=== PATIENT | female | born 1960 | race Caucasian/White ===

== ENCOUNTER → 2017-01-29 | Outpatient (CLI) | payer OTHER ==
[2017-01-29 19:35] LABS: Basophils % (A) 1 %; CH 30.9; CHCM 33.8; Eosinophils # (A) 0.2 k/uL (0-0.7); Eosinophils % (A) 3 %; HCT 39.9 % (34.0-46.0); HDW 2.81; HGB 13.1 gm/dL (11.4-16.0); Luc # (Auto) 0.12; Luc % (Auto) 2; Lymphocytes # (A) 1.5 k/uL (1.0-4.8); Lymphocytes % (A) 26 %; MCH 30.1 pg (25.0-35.0); MCHC 32.8 g/dL (31.0-37.0); MCV 91.8 fL (80.0-100.0); Monocytes # (A) 0.3 k/uL (0-1.0); Monocytes % (A) 5 %; Neutrophils # (A) 3.7 k/uL (1.3-7.7); Neutrophils % (A) 63 %; RBC 4.34 m/uL (3.80-5.40); RDW 12.6 % (11.5-15.5); WBC 5.8 k/uL (3.8-10.6); WBC (Perox) 5.86
[2017-01-29 19:58] LABS: ALT 29 U/L (9-52); AST 19 U/L (14-36); Alkaline Phosphatase 108 U/L (38-126); Anion Gap 12 mmol/L; Bilirubin, Delta 0.3 mg/dL (0.0-0.2); Blood Urea Nitrogen 23 mg/dL (7-17); Calcium 10.1 mg/dL (8.4-10.2); Carbon Dioxide 23 mmol/L (22-30); Chloride 106 mmol/L (98-107); Glucose 184 mg/dL (74-99); Magnesium 1.8 mg/dL (1.6-2.3); Non-African American GFR(MDRD) >60 (>60 ml/min/1.73 sqM); Potassium 4.9 mmol/L (3.5-5.1); Sodium 141 mmol/L (137-145); Total Bilirubin 0.6 mg/dL (0.2-1.3); Total Protein 7.7 g/dL (6.3-8.2)
[2017-01-30 14:52] LABS: Cholesterol 211 mg/dL (<200)
== END ==
LOC: MMGSC 10:47
PROVIDERS: ATTEND Internal Medicine Gastroenterology
DX: Z48.23 Encounter for aftercare following liver transplant (principal); Z94.4 Liver transplant status
CPT/HCPCS: 36415; 80048; 80061; 80076; 80197; 82465; 83036; 83735; 85025

== ENCOUNTER → 2017-01-29 | Outpatient (CLI) | payer OTHER ==
[2017-01-29 19:48] LABS: Cholesterol 215 mg/dL (<200); HDL Cholesterol 60 mg/dL (40-60); Triglycerides 115 mg/dL (<150)
[2017-01-29 21:26] LABS: Hemoglobin A1C 6.8 % (4.2-6.1)
== END ==
LOC: MMGSC 10:59
PROVIDERS: ATTEND Family Medicine
DX: E11.9 Type 2 diabetes mellitus without complications (principal)
CPT/HCPCS: 80061; 83036

== ENCOUNTER → 2017-07-30 | Outpatient (CLI) | payer OTHER ==
[2017-07-30 18:21] LABS: Cholesterol 214 mg/dL (<200); HDL Cholesterol 57 mg/dL (40-60)
[2017-07-31 03:36] LABS: Urine Creatinine 264.8 mg/dL
== END | disposition home or self-care (01) ==
LOC: MMGSC 10:10
PROVIDERS: ATTEND Family Medicine
DX: E11.9 Type 2 diabetes mellitus without complications (principal); I10 Essential (primary) hypertension
CPT/HCPCS: 36415; 80061; 82043; 82570; 83036

== ENCOUNTER → 2022-03-24 | Outpatient (CLI) | payer BC ==
--- NOTE | 2022-03-25 01:37 | MR ---
EXAMINATION TYPE: MR knee LT wo con DATE OF EXAM: 03/24/2022 COMPARISON: This could be due to persistent met hemoglobin content. HISTORY: Left knee pain Multiplanar multiecho imaging of the left knee with no contrast. There is subcutaneous edema anterior to the patella. Similar change seen anterior to the proximal tib ia. There is complete tear of the anterior cruciate ligament. Posterior cruciate ligament is intact. There is small knee joint effusion. The collateral ligaments are intact. There is small areas of increased signal in the anterior horn of the lateral meniscus consistent with a horizontal tear. The medial meniscus appears fairly normal. IMPRESSION: Knee joint effusion. Subcutaneous edema. Complete tear anterior cruciate ligament. Small horizontal tear of the anterior horn of the lateral meniscus.
== END | disposition home or self-care (01) ==
LOC: RADMRIMAIN 19:28
PROVIDERS: ATTEND Orthopaedic Surgery
DX: M25.462 Effusion, left knee (principal); S83.282A Other tear of lateral meniscus, current injury, left knee, initial encounter; S83.512A Sprain of anterior cruciate ligament of left knee, initial encounter; X58.XXXA Exposure to other specified factors, initial encounter

== ENCOUNTER 2022-06-07 09:33 | Day surgery (SDC) | payer BC ==
[2022-06-06 08:12] VITALS: BMI 42.5
--- NOTE | 2022-06-07 03:13 | HP ---
HISTORY AND PHYSICAL DATE OF SURGERY: 06/07/2022. HISTORY OF PRESENT ILLNESS: Georgina Riley is a 61-year-old patient seen with progressive left knee pain. We discussed options for treatment. She elected to proceed with left knee arthroscopy. Consent was obtained. PAST MEDICAL HISTORY: Hypertension, hyperlipidemia, rbi-vgonleh-vvjgilled diabetes. PAST SURGICAL HISTORY: section, liver transplant surgery. DAILY MEDICATIONS: 1. Amlodipine. 2. Atorvastatin. 3. Empagliflozin. 4. Ursodiol. 5. Tacrolimus. ALLERGIES: None. SOCIAL HISTORY: She denies tobacco use. PHYSICAL EVALUATION OF THE LEFT KNEE: Range of motion is +3 to 115. Mild effusion. Tenderness, lateral joint line. Positive lateral Elsy's. Ligaments stable. Hip rotation without pain. Distal neurovascular exam intact. RADIOGRAPHS: Radiographs of the left knee revealed a mild osteoarthritis. MRI of left knee revealed a lateral meniscal tear, ACL tear and effusion. IMPRESSION: 1. Internal derangement of left knee with lateral meniscal tear and anterior cruciate ligament tear. 2. Hypertension. PLAN: Left knee arthroscopy with partial lateral meniscectomy and debridement. MMODL / IJN: [id number] /
[~2022-06-07 09:33] MED LIST: DEXAMETHASONE SOD PHOSPHATE 4 MG/ML 1 ML VIAL IV ONE; HYDROmorphone 0.5 MG/0.5 ML SYRINGE IVP PRN; LACTATED RINGERS 1,000 ML IV SCH; LIDOCAINE 1% (10MG/ML) FOR IV START INTRADERMA PRN; ONDANSETRON 4 MG/2 ML VIAL IVP ONE
[2022-06-07 10:41] LABS: Glucose,Whole Blood 120 mg/dL (70-110)
[2022-06-07] MEDS ORDERED: SCOPOLAMINE 1 MG/72 HR PATCH TRANSDERM ONE (10:51)
[2022-06-07] MEDS ORDERED: SUCCINYLCHOLINE CHLORIDE 200 MG/10 ML VIAL IV ONE (11:37)
[2022-06-07] MEDS ORDERED: LIDOCAINE 2% INJ 20 MG/ML (2 ML VIAL) ONE (11:37)
[2022-06-07] MEDS ORDERED: BUPIVACAINE (PF) 0.25% 30 ML VIAL SQ ONE ×2 (11:37→12:09)
[2022-06-07] MEDS ORDERED: MIDAZOLAM 2 MG/2 ML VIAL ONE (11:37)
[2022-06-07] MEDS ORDERED: PROPOFOL 10 MG/ML 20 ML VIAL IV ONE (11:37)
[2022-06-07] MEDS ORDERED: fentaNYL (PF) 50 MCG/ML 2 ML AMP ONE (11:37)
--- NOTE | 2022-06-07 12:22 | P.OP ---
Date of Procedure: 06/07/22 Preoperative Diagnosis: Internal derangement left knee Postoperative Diagnosis: 1. Tear lateral meniscus left knee 2. Partial ACL tear left knee 3. Grade 4 chondromalacia femoral sulcus left knee 4. Reactive synovitis medial, lateral and suprapatellar compartments left knee Procedure(s) Performed: 1. Arthroscopic partial lateral meniscectomy left knee 2. Arthroscopic debridement partial ACL tear left knee 3. Arthroscopic partial synovectomy medial, lateral and suprapatellar compartments left knee Anesthesia: GETA, local Surgeon: Eulogio Fragoso Estimated Blood Loss (ml): 8 Pathology: none sent Condition: stable Disposition: PACU Indications for Procedure: 61-year-old patient seen with progressive left knee pain. After treatment options were discussed, she elected to proceed with arthroscopy. Operative Findings: See description of procedure Description of Procedure: Patient was taken to the operative suite. Patient underwent a general anesthetic by the department of anesthesia. Patient was given preoperative antibiotics. The left lower extremity was placed in a well-padded arthroscopic leg dupree. The left leg was prepped and draped in the normal sterile orthopedic fashion. A lateral parapatellar and suprapatellar incision was made. Trochars were inserted. Arthroscopy was initiated. Suprapatellar pouch revealed diffuse thick reactive synovitis. The patellofemoral joint appeared to articulate congruently. There was grade 4 chondromalacia of the femoral sulcus without evidence for significant osteochondral tears being present. The scope was guided into the medial gutter. No loose bodies or plica were identified The scope was then guided into the medial compartment. A medial parapatellar incision was made. Trocar inserted followed by probe. The medial meniscus was probed and was found to be stable. There was no stiffening chondromalacia involving the medial compartment. There was some thick reactive synovitis anteriorly. I performed a partial synovectomy. There appeared be good decompression of synovitis. Scope and probe were then guided into the intercondylar notch. Cruciates were identified, probed and I noted some partial tearing along the lateral fibers of the anterior cruciate ligament. I introduced a motorized shaver and debrided those out. The residual ACL was probed and was found to be stable.. The scope and probe were then guided into lateral compartment. There was a complex tear involving the posterior horn lateral meniscus. There were grade 1 chondromalacia changes lateral femoral condyle. There was thick reactive synovitis anteriorly. I performed a partial lateral meniscectomy getting down to stable meniscal tissue. I performed a partial synovectomy decompressing the reactive synovitis. The residual meniscus was probed and was found to be stable. There was good decompression of synovitis. The scope was in guided back into the suprapatellar compartment. I introduced a motorized shaver into the suprapatellar compartment. I debrided some piecemeal fragments of meniscus that I encountered. I performed a partial synovectomy. Shaver was removed. There was good decompression of the synovitis. I now took one more look around the entire knee, no residual debris. Instruments were now removed from the joint. The joint was infiltrated with .25% Marcaine. Steri-Strips were applied to the portal sites. Sterile dressings were applied. The patient was placed into a JENAE hose. No tourniquet was utilized. The patient was awakened, transferred to a bed and taken to recovery stable satisfactory condition.
[2022-06-07 12:29] VITALS: TEMP 97.4
[2022-06-07] MEDS ORDERED: LACTATED RINGERS 1,000 ML IV ONE (13:14)
[2022-06-07] MEDS ORDERED: ONDANSETRON 4 MG/2 ML VIAL ONE (13:21)
[2022-06-07] MEDS ORDERED: ONDANSETRON 4 MG/2 ML VIAL IVP ONE (13:30)
[2022-06-07 14:00] VITALS: RESP 20
[2022-06-07 14:20] VITALS: BP 118/75; PULSE 93
== END 2022-06-07 15:11 | disposition home or self-care (01) ==
LOC: OR 09:33
PROVIDERS: ATTEND Orthopaedic Surgery
DX: M23.301 Other meniscus derangements, unspecified lateral meniscus, left knee (principal); S83.512A Sprain of anterior cruciate ligament of left knee, initial encounter; M94.262 Chondromalacia, left knee; M65.862 Other synovitis and tenosynovitis, left lower leg; M25.562 Pain in left knee; M17.12 Unilateral primary osteoarthritis, left knee; I10 Essential (primary) hypertension; E78.5 Hyperlipidemia, unspecified; E11.9 Type 2 diabetes mellitus without complications; M25.462 Effusion, left knee; Z94.4 Liver transplant status; Z98.891 History of uterine scar from previous surgery; X58.XXXA Exposure to other specified factors, initial encounter
CPT/HCPCS: 29881; J2250; J0330; J1100; J0690; J2405; J3010; J2704; J1170; J2001

== ENCOUNTER → 2023-07-02 | Outpatient (CLI) | payer BC ==
--- NOTE | 2023-07-02 08:47 | US ---
EXAMINATION TYPE: US thyroid st tissue head/neck DATE OF EXAM: 07/02/2023 COMPARISON: NONE CLINICAL INDICATION: Female, 62 years old with history of R59.0 LOCALIZED ENLARGED LYMPH NODES; Lump left shoulder area. TECHNIQUE: Grayscale imaging of the area of concern in the left neck. FINDINGS: Scanned left shoulder area of concern. Hypoechoic area seen 1.8 x .5 x 1.6 m. IMPRESSION: Hypoechoic area in the area of concern on the patient's lump favored represent a lipid containing les ion such as a lipoma. This can be confirmed with MRI or CT if clinically warranted.
== END | disposition home or self-care (01) ==
LOC: RADUSWWP 08:14
PROVIDERS: ATTEND Student in an Organized Health Care Education/Training Program
DX: R59.0 Localized enlarged lymph nodes (principal)
CPT/HCPCS: 76536

== ENCOUNTER → 2024-08-26 | Outpatient (CLI) | payer MEDICARE ==
--- NOTE | 2024-08-26 08:39 | US ---
EXAMINATION TYPE: US pelvic complete DATE OF EXAM: 08/26/2024 COMPARISON: NONE CLINICAL INDICATION: Female, 63 years old with history of R89.1 Elevated HCG; TECHNIQUE: Transabdominal (TA). Transabdominal grayscale sonographic images of the pelvis were acquired. FINDINGS: Date of LMP: Patient unsure EXAM MEASUREMENTS: Uterus: 11.3 x 4.4 x 6.2 cm Endometrial Stripe: 0.5 cm Right Ovary: 2.4 x 1.9 x 1.8 cm Left Ovary: 2.5 x 1.2 x 2.4 cm 1. Uterus: anteverted, 0.7cm hyperechoic focus anterior myometrium 2. Endometrium: appears wnl 3. Right Ovary: wnl 4. Left Ovary: wnl 5. Bilateral Adnexa: wnl 6. Posterior cul-de-sac: wnl Anteverted uterus with a 0.7 cm shadowing calculus within the anterior myometrium. Endometrium is wit hin normal limits. Both ovaries appear unremarkable. No free fluid. IMPRESSION: No acute pelvic process. [facility], , 08/26/2024 8:37 AM
--- NOTE | 2024-08-26 08:42 | US ---
EXAMINATION TYPE: US abdomen complete DATE OF EXAM: 08/26/2024 COMPARISON: NONE CLINICAL INDICATION: Female, 63 years old with history of R89.1 ELEVATED HCG; TECHNIQUE: Grayscale and color Doppler imaging of the abdomen was performed. FINDINGS: EXAM MEASUREMENTS: Liver Length: 15.8 cm Gallbladder Wall: n/a CBD: 0.8 cm Spleen: 11.8 cm Right Kidney: 10.7 x 5.4 x 5.6 cm Left Kidney: 10.7 x 5.3 x 4.7 cm Pancreas: limited by overlying midline bowel gas Liver: wnl Gallbladder: not seen - patient unsure if gallbladder has been removed or not Evidence for sonographic Goel's sign: no CBD: dilated if patient still has gallbladder, wnl if gallbladder has been removed Spleen: wnl Right Kidney: 2.1cm cyst mid pole Left Kidney: wnl Upper IVC: wnl Abd Aorta: wnl The liver is homogenous. No focal lesion identified. The intrahepatic portion of the IVC and proxima l abdominal aorta are within normal limits. The gallbladder is not visualized. Common bile duct is pr ominent in size. The visualized portions of the pancreas are homogenous. The spleen is unremarkable. Kidneys are symmetric and free of hydronephrosis. Simple right mid kidney 2.1 cm anechoic cyst. IMPRESSION: 1. Nonvisualization the gallbladder with mildly dilated common bile duct measuring up to 0.8 cm. This is within normal limits if patient has had cholecystectomy otherwise consider further evaluation wit h biliary labs and consideration for MRCP/ERCP. 2. Simple right renal 2.1 cm cyst. [facility], , 08/26/2024 8:40 AM
--- NOTE | 2024-08-26 08:58 | US ---
EXAMINATION TYPE: US thyroid st tissue head/neck DATE OF EXAM: 08/26/2024 COMPARISON: None CLINICAL INDICATION: Female, 63 years old with history of E04.2 NONTOXIC MULTINODULAR GOITER R89.1 AB NORMAL; TECHNIQUE: Grayscale and color Doppler imaging of the thyroid gland. FINDINGS: GLAND SIZE: Right Lobe: 4.8 x 1.4 x 2.0 cm Overall Parenchyma: homogeneous Left Lobe: 4.3 x 1.5 x 1.7 cm Overall Parenchyma: homogeneous Isthmus Thickness: 0.3 cm NODULES RIGHT: # of nodules measured on right: 1 - 0.7cm cyst LEFT: # of nodules measured on left: 2 - isoechoic nodule described below and 0.7cm cyst 1. 1.7 X 0.7 x 1.4 cm, mid medial, solid or almost completely solid, isoechoic nodule, which is wid er than tall, with smooth margins, without echogenic foci. TR 3. Prior size: no previous ISTHMUS: # of nodules measured in the isthmus: 0 Bilateral neck scanned, no evidence of lymphadenopathy. IMPRESSION: 1. Left thyroid lobe 1.7 cm TR 3 nodule. 2. Additional bilateral subcentimeter thyroid cysts. ACR TI-RADS LEVEL: TR-RADS 3 -Follow if > 1.5 cm, FNA if > 2.5 cm *Highest TI-RADS level nodule reported [facility], , 08/26/2024 8:55 AM
== END | disposition home or self-care (01) ==
LOC: RADUSWWP 07:04
PROVIDERS: ATTEND Family Medicine
DX: E04.2 Nontoxic multinodular goiter (principal); R89.1 Abnormal level of hormones in specimens from other organs, systems and tissues
CPT/HCPCS: 76536; 76700; 76856